=== PATIENT | male | born 1985 | race Caucasian/White ===

== ENCOUNTER 2017-07-25 11:48 | Emergency (ER) | payer OTHER ==
[2017-07-25 11:57] VITALS: BP 150/98; PULSE 79; RESP 18; TEMP 98.1
--- NOTE | 2017-07-25 12:03 | ED ---
Upper Extremity HPI - General Chief Complaint: Extremity Injury, Upper Stated Complaint: Hand injury Time Seen by Provider: 07/25/17 11:59 Source: patient, RN notes reviewed Mode of arrival: ambulatory Limitations: no limitations - History of Present Illness Initial Comments: This is a 32-year-old male that presents to the emergency Department chief complaint of right hand pain. Patient states that he punched a wall last night. He does admit that he has small abrasion and some hand pain and swelling. Patient is up-to-date on his tetanus. Patient denies any other areas of injury. Patient has had a prior boxer's fracture to his right hand he is [id number]. Patient able to make a complete fist but states that it 's sore. He states his most painful if you press over the area. - Related Data Home Medications Medication Instructions Recorded Confirmed No Known Home Medications [No 07/25/17 07/25/17 Known Home Medications] Allergies Allergy/AdvReac Type Severity Reaction Status Date / Time No Known Allergies Allergy Verified 07/25/17 12:27 Review of Systems ROS Statement: Those systems with pertinent positive or pertinent negative responses have been documented in the HPI. ROS Other: All systems not noted in ROS Statement are negative. Past Medical History Past Medical History: No Reported History History of Any Multi-Drug Resistant Organisms: None Reported Past Surgical History: No Surgical Hx Reported Past Psychological History: No Psychological Hx Reported Smoking Status: Former smoker Past Alcohol Use History: Daily General Exam Limitations: no limitations General appearance: alert, in no apparent distress Head exam: Present: atraumatic, normocephalic, normal inspection Neck exam: Present: normal inspection, full ROM. Absent: tenderness, meningismus, lymphadenopathy Respiratory exam: Present: normal lung sounds bilaterally. Absent: respiratory distress, wheezes, rales, rhonchi, stridor Cardiovascular Exam: Present: regular rate, normal rhythm, normal heart sounds. Absent: systolic murmur, diastolic murmur, rubs, gallop, clicks Extremities exam: Present: other (Right hand there is moderate swelling along with moderate tenderness with palpation along the fifth metacarpal region there is a small closed abrasion there is mild ecchymosis and patient has full range of motion neurovascular intact there is no wrist tenderness, no proximal forearm tenderness) Neurological exam: Present: alert, oriented X3, CN II-XII intact Skin exam: Present: warm, dry, intact, normal color. Absent: rash Course Vital Signs 07/25/17 11:54 Temperature 98.1 F Pulse Rate 79 Respiratory 18 Rate Blood Pressure 150/98 O2 Sat by Pulse 99 Oximetry Medical Decision Making - Medical Decision Making 32-year-old male presents from for right hand injury. X-rays reviewed there is an old fracture there is no acute fracture. This was discussed with radiologist that there is no acute fracture. Patient will be discharged advised take Tylenol and Motrin [id number] and apply ice. Disposition Clinical Impression: Contusion of right hand Disposition: HOME SELF-CARE Condition: Stable Instructions: Contusion in Adults (ED) Additional Instructions: Please return to the Emergency Department if symptoms worsen or any other concerns. Is patient prescribed a controlled substance at d/c from ED?: No Referrals: Zuleyka Herrera MD [Primary Care Provider] - 1-2 days Time of Disposition: 12:30
--- NOTE | 2017-07-25 12:20 | XR ---
EXAMINATION TYPE: XR hand complete RT DATE OF EXAM: 07/25/2017 CLINICAL HISTORY: Pain and swelling of the fifth digit TECHNIQUE: Frontal, lateral and oblique images of the right hand are obtained. COMPARISON: None. FINDINGS: There is a nondisplaced, dorsally angulated impaction fracture deformity that is not commin uted of the distal diaphysis and metaphysis of the fifth metacarpal. There is overlying soft tissue s welling indicating acuity. No additional fracture is identified. No radiopaque foreign body. IMPRESSION: Nondisplaced dorsally angulated impaction fracture of the distal diaphysis and metaphysis of the fifth metacarpal with overlying soft tissue swelling.
== END 2017-07-25 12:56 | disposition home or self-care (01) ==
LOC: EC 11:48
DX: S60.221A Contusion of right hand, initial encounter (principal); Z87.81 Personal history of (healed) traumatic fracture; Z87.891 Personal history of nicotine dependence; W22.01XA Walked into wall, initial encounter
CPT/HCPCS: 99283

== ENCOUNTER → 2018-10-04 | Outpatient (CLI) | payer OTHER ==
--- NOTE | 2018-10-04 15:45 | US ---
EXAMINATION TYPE: US scrotum with doppler. Grayscale and color Doppler Duplex imaging performed of t shahab scrotum. DATE OF EXAM: 10/04/2018 COMPARISON: NONE CLINICAL HISTORY: N50.89 R mass/abnormality. small palpable felt on the right since vasectomy 10 year s ago EXAM MEASUREMENTS: TESTICLES: Right Testicle: 5.2 x 3.7 x 2.9 cm Left Testicle: 4.2 x 3.3 x 2.4 cm EPIDIDYMIS HEAD: Right Epididymis: 1.0 cm Left Epididymis: 1.1 cm Doppler performed to assess for testicular vascularity; good bilateral color flow and waveforms are s een. There is no evidence of testicular torsion. Presence of hydroceles: seen on the left Presence of varicoceles: no, prominent vessels seen midline at area of palpable the epididymis was seen just under skin line IMPRESSION: 1. Small amount of free fluid within the left hemiscrotum
== END | disposition home or self-care (01) ==
LOC: RADUSWWP 15:07
PROVIDERS: ATTEND Family Medicine
DX: N50.89 Other specified disorders of the male genital organs (principal)
CPT/HCPCS: 76870; 93975